=== PATIENT | female | born 1955 | race African-American/Black ===

== ENCOUNTER 2024-10-28 23:36 | Emergency (ER) | payer OTHER, MEDICARE, SELFPAY ==
[2024-10-28 23:37] VITALS: BP 123/89
[2024-10-29 00:05] VITALS: BP 122/85
[2024-10-29 00:17] VITALS: BMI 24.0
--- NOTE | 2024-10-29 00:35 | ED.GENMED ---
History of Present Illness
<Paz Cesar PA-C - Last Filed: 10/29/24 06:32>
General
Chief Complaint: Abdominal Symptoms
Source: patient
Exam Limitations: none
Time Seen by Provider: 10/29/24 00:34
Nursing documentation reviewed up to this point in time: agreed with
History of Present Illness
History of Present Illness:
69-year-old female with a past medical history of Lyme disease, uterine fibroids, presents emergency department today with concerns of nausea and queasiness along with transient epigastric pain. Patient reports that she is in the area visiting
friends from college when she had a large meal at at lunchtime around 2 to 3 PM. She ate sweet potato fries and a [place] salad. A few minutes after, she started develop some feelings of indigestion and stomach grumbling and generalized queasiness.
She denies vomiting. She denies fevers or chills. She denies chest pain or shortness of breath. She is particularly concerned because one of her friends presented with similar symptoms and ended up having a heart attack. She currently denies
abdominal pain but she is concerned because she feels her stomach is still grumbling. She denies chest pain or shortness of breath. She denies any personal history of cardiac disease.
Review of Systems
<Paz Cesar PA-C - Last Filed: 10/29/24 06:32>
Review of Systems
All Other Systems: ROS reviewed and negative except as documented in HPI and ROS
Phy Exam
<Paz Cesar PA-C - Last Filed: 10/29/24 06:32>
Physical Exam
Physical Exam:
General: Patient is well appearing and in no acute distress; non-toxic
Skin: Warm and dry, no rashes or lesions
Head: Normocephalic, atraumatic
Eyes: Sclera non-icteric. EOMs intact.
Cardiac: Regular rate and rhythm, no murmurs
Peripheral Vascular: No lower extremity swelling or edema
Pulm: Normal respiratory effort, no wheezes, rales, or rhonchi
Abdomen: No abdominal tenderness to palpation
Neuro: CN II-XII intact, no focal neurologic deficits.
Psychiatric: Appropriate mood and affect.
Course
Anjanalt;Paz Cesar PA-C - Last Filed: 10/29/24 06:32>
Orders/Labs/Results
Orders:
Orders
10/28/24 23:49
EKG- Treatment ONCE
10/29/24
Electrocardiogram (*1) Stat
Reason for Study: Chest Pain
10/29/24 00:49
0.9% Sodium Chloride 500 ml [Nss] 500 ml IV BOLUS
US Abdomen Complete/Upper Urgent
Comment:
Reason For Exam: epigastric discomfort, nausea
10/29/24 00:54
CBC/With Diff [Complete Blood Count/With Diff] Stat
10/29/24 01:24
Comprehensive Metabolic Panel Urgent
Comment: REDRAW
Lipase Urgent
Comment: REDRAW
Troponin I Urgent
Comment: REDRAW
Abnormal Lab Results
10/29/24 10/29/24
00:54 01:24
Absolute Lymphs (auto) 0.5 L 10^3/uL
(1.2-3.4)
Neutrophils % 81.7 H %
(42.2-75.2)
Lymphocytes % 9.7 L %
(20.5-51.1)
Chloride 110 H mmol/L
(98-107)
Carbon Dioxide 31 H mmol/L
(22-30)
Creatinine 0.5 L mg/dL
(0.6-1.0)
Glucose 101 H mg/dl
(70-99)
Total Protein 6.0 L g/dl
(6.3-8.2)
05/29/25 00:54
10/29/24 01:24
Vital Signs
Initial and Last Documented VS:
Initial Vital Signs
Temp Pulse Resp BP Pulse Ox
98.6 F 104 18 123/89 98
10/28/24 23:37 10/28/24 23:37 10/28/24 23:37 10/28/24 23:37 10/28/24 23:37
Last Documented Vital Signs
Temp Pulse Resp BP Pulse Ox
98.6 F 98 19 122/85 99
10/28/24 23:37 10/29/24 00:30 10/29/24 00:30 10/29/24 00:05 10/29/24 00:30
<Rand Sabillon, DO - Last Filed: 10/29/24 03:03>
Orders/Labs/Results
Orders:
Orders
10/28/24 23:49
EKG- Treatment ONCE
10/29/24
Electrocardiogram (*1) Stat
Reason for Study: Chest Pain
10/29/24 00:49
0.9% Sodium Chloride 500 ml [Nss] 500 ml IV BOLUS
US Abdomen Complete/Upper Urgent
Comment:
Reason For Exam: epigastric discomfort, nausea
10/29/24 00:54
CBC/With Diff [Complete Blood Count/With Diff] Stat
10/29/24 01:24
Comprehensive Metabolic Panel Urgent
Comment: REDRAW
Lipase Urgent
Comment: REDRAW
Troponin I Urgent
Comment: REDRAW
Abnormal Lab Results
10/29/24 10/29/24
00:54 01:24
Absolute Lymphs (auto) 0.5 L 10^3/uL
(1.2-3.4)
Neutrophils % 81.7 H %
(42.2-75.2)
Lymphocytes % 9.7 L %
(20.5-51.1)
Chloride 110 H mmol/L
(98-107)
Carbon Dioxide 31 H mmol/L
(22-30)
Creatinine 0.5 L mg/dL
(0.6-1.0)
Glucose 101 H mg/dl
(70-99)
Total Protein 6.0 L g/dl
(6.3-8.2)
10/29/24 00:54
10/29/24 01:24
Vital Signs
Initial and Last Documented VS:
Initial Vital Signs
Temp Pulse Resp BP Pulse Ox
98.6 F 104 18 123/89 98
10/28/24 23:37 10/28/24 23:37 10/28/24 23:37 10/28/24 23:37 10/28/24 23:37
Last Documented Vital Signs
Temp Pulse Resp BP Pulse Ox
98.6 F 98 19 122/85 99
10/28/24 23:37 10/29/24 00:30 10/29/24 00:30 10/29/24 00:05 10/29/24 00:30
<Paz Cesar PA-C - Last Filed: 10/29/24 06:32>
MDM/Problems Addressed
Differential Diagnosis Includes:
ddx include dehydration, lightheadedness, ACS, biliary colic
MDM/Problems Addressed:
69-year-old female with a past medical history of Lyme disease, uterine fibroids, presents emergency department today with concerns of nausea and queasiness along with transient epigastric pain. Patient reports that she is in the area visiting
friends from college when she had a large meal at at lunchtime around 2 to 3 PM. Her symptoms resolved without intervention. Physical exam she is well-appearing in no acute distress her abdomen soft and nontender. She received IV fluids. Her
ultrasound was negative for biliary disease. Cardiac workup negative. Patient stable for discharge.
<Paz Cesar PA-C - Last Filed: 10/29/24 06:32>
*Pulse Oximetry
Patient hypoxic: no
*Critical Care Note
Total Time (30-74mins, 75-104mins- exclusive of procedures): Not Applicable
Data Reviewed
Review of Other/Old Records Reveals: Records (No prior ER physician documentation to review no discharge summary through)
Source: patient
ED Attending Note
<Paz Cesar PA-C - Last Filed: 10/29/24 06:32>
-
Portions of this chart may have been created with voice recognition software.� Occasional wrong word or��sound alike� substitutions may have occurred due to the inherent limitations of voice recognition software.
<Rand Sabillon DO - Last Filed: 10/29/24 03:03>
ED Attending Note
Patient seen and examined by attending physician: Yes
I performed a history and physical exam of patient and discussed management with resident, I reviewed resident's note and agree with documented findings and plan of care.: Yes
ED Attending Note:
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 Admits to eating a late lunch around 3:30 PM while visiting friends locally.
She is also concerned with brief lightheadedness that occurred the day prior. No recurrent episodes.
Currently comfortable and pain-free. No associated chest pain or palpitations, no fevers or chills, no vomiting, no diarrhea or constipation.
Overall well in appearance.
Heart is regular rate and rhythm. No murmur no rub.
No respiratory distress.
Abdomen is soft without appreciable tenderness.
Concern for biliary colic, acute gastritis/gastroenteritis, other consideration is ACS.
Thus far labs are unremarkable, troponin is negative. EKG is unremarkable.
Awaiting abdominal ultrasound.
Discharge Plan
Departure
Patient Disposition: Home (Routine Discharge)
Date of Disposition: 10/29/24
Time of Disposition: 03:05
Patient with high blood pressure during this ER visit?: No
Condition: Good
Discharge Problem:
Indigestion, Nausea
Instructions: Nausea and Vomiting, Adult (DC), Stomach ache and stomach upset
Prescriptions:
No Action
No Current Medications
0
Referrals:
UNKNOWN - PT DOES,NOT KNOW [Family Provider]
Activity Restrictions/Additional Instructions:
Your CBC and CMP blood work are unremarkable. Your ultrasound does not show any evidence of biliary disease. Your troponin is normal. Your EKG is normal.
Please follow-up with your primary care provider.
Please return for new or worsening symptoms.
Interventions
Interventions:
*Risk Screen - Suicide Last Done: 10/28/24 23:37
*General Assessment Last Done: 10/29/24 00:17
*Neglect/Abuse Screening Last Done: 10/29/24 00:17
*ED- Fall Risk Assessment Last Done: 10/29/24 00:17
*ED COVID-19 Vaccine History Last Done: 10/29/24 00:17
*Nursing Disposition Last Done: 10/29/24 03:20
HS-Zcbjoq-Ekfaphhbcu Assessment Last Done: 10/29/24 00:17
Discharge Date and Time
Discharge Date/Time: 10/29/24 03:20
Print Language: LATVIAN
[2024-10-29] MEDS: NSS 500 IV (00:56)
[2024-10-29 01:05] LABS: % Eosinophils 0.6 % (0-6); % Immature Granulocytes 0.2 % (0-0.5); % Lymphocytes 9.7 % (20.5-51.1); % Monocytes 7.8 % (1.7-9.3); % Neutrophils 81.7 % (42.2-75.2); Absolute Lymphocytes 0.5 10^3/uL (1.2-3.4); Absolute Monocytes 0.4 10^3/uL (0.1-0.6); Absolute Neutrophils 4.1 10^3/uL (1.4-6.5); Hemoglobin 14.9 g/dL (12.0-16.0); Mean Corp Hgb Conc. 33.1 g/dL (33.0-37.0); Mean Corpuscular Hgb 28.8 pg (27.0-31.0); Mean Platelet Volume 9.1 fL (7.4-10.4); Nucleated Red Blood Cells % 0 %; Platelet Count 146 10^3/uL (130-400); Red Blood Cell Count 5.17 10^6/uL (4.20-5.40); Red Cell Dist. Width 12.4 % (11.5-14.5)
[2024-10-29 01:56] LABS: ALT (SGPT) 11 U/L (0-35); AST (SGOT) 20 U/L (14-36); Albumin 3.8 g/dl (3.5-5.0); Alkaline Phosphatase 57 U/L (38-126); Blood Urea Nitrogen 16 mg/dl (7-17); Carbon Dioxide 31 mmol/L (22-30); Chloride 110 mmol/L (98-107); Estimated Creatinine Clearance 105 ml/min; Glucose 101 mg/dl (70-99); Lipase 156 U/L (23-300); Potassium 4.1 mmol/L (3.5-5.1); Sodium 143 mmol/L (135-145); Total Bilirubin 0.5 mg/dl (0.2-1.3); eGFR > 60.00
== END 2024-10-29 03:20 | disposition home or self-care (01) ==
LOC: EMR 23:36
PROVIDERS: Emergency Medicine; Physician Assistant; EMERGENCY PHYSICIAN Emergency Medicine
DX: K30 Functional dyspepsia (principal); R11.0 Nausea
CPT/HCPCS: 96360; 99284; 76700; 80053; 83690; 84484; 85025; 93005